=== PATIENT | female | born 1980 | race Caucasian/White ===

== ENCOUNTER → 2018-01-07 | Outpatient (CLI) | payer OTHER | LOC: OD 10:34 | PROVIDERS: ATTEND Obstetrics & Gynecology | DX: O36.80X0 Pregnancy with inconclusive fetal viability, not applicable or unspecified (principal); O20.0 Threatened abortion | CPT/HCPCS: 36415; 84702 ==

== ENCOUNTER → 2018-01-09 | Outpatient (CLI) | payer OTHER | LOC: OD 12:02 | PROVIDERS: ATTEND Obstetrics & Gynecology | DX: O36.80X0 Pregnancy with inconclusive fetal viability, not applicable or unspecified (principal); O20.0 Threatened abortion; Z3A.00 Weeks of gestation of pregnancy not specified | CPT/HCPCS: 36415; 84702 ==

== ENCOUNTER 2020-03-31 11:29 | Emergency (ER) | payer OTHER ==
[2020-03-31 12:51] LABS: ABSOLUTE EOSINOPHILS # (AUTO) 0.1 10^3/uL (0.0-0.6); ABSOLUTE LYMPHOCYTES (AUTO) 1.9 10^3/uL (0.5-4.7); ABSOLUTE MONOCYTES (AUTO) 0.6 10^3/uL (0.1-1.4); ABSOLUTE NEUT (AUTO) 3.6 10^3/uL (1.7-8.2); BASOPHILS % (AUTO) 0.7 % (0-2); EOSINOPHILS % (AUTO) 1.1 % (0-6); HEMATOCRIT 39.5 % (36.0-47.0); HEMOGLOBIN 13.6 g/dL (12.0-15.5); LYMPHOCYTES % (AUTO) 31.1 % (13-45); MEAN CORPUSCULAR HEMOGLOBIN 30.4 pg (27.0-33.4); MEAN CORPUSCULAR HGB CONC 34.4 g/dL (32.0-36.0); MEAN CORPUSCULAR VOLUME 88 fl (80-97); MONOCYTES % (AUTO) 9.2 % (3-13); PLATELET COUNT 250 10^3/uL (150-450); RED BLOOD COUNT 4.47 10^6/uL (3.72-5.28); SEGMENTED NEUTROPHILS % (AUTO) 57.9 % (42-78); TOTAL CELLS COUNTED % (AUTO) 100 %; WHITE BLOOD COUNT 6.3 10^3/uL (4.0-10.5)
--- NOTE | 2020-03-31 13:02 | ER Document Report ---
ED General - General Chief Complaint: OB Problem (<20wks) Stated Complaint: ABDOMINAL PAIN Time Seen by Provider: 03/31/20 12:15 Primary Care Provider: JASSON BARAKAT MD [ACTIVE STAFF] - Follow up in 1 week Notes: 39-year-old female G 11 P4 with 1 tubal ligation and 6 miscarriages presents with pelvic pain. She was having a period on February 14 which was her last. Then had a prior home test positive in early February she then had some cramping and bleeding for a couple of days and was told her beta had dropped. No subsequent subsequent beta it increased again and now she still at home test which she does for monitoring. She just flew back from [place] and will be transitioning care to women's health here in [place]. She has no belly pain currently but does have some low back pain. Leading anymore. Dr. Muhammad is her OB. TRAVEL OUTSIDE OF THE [place] IN LAST 30 DAYS: Yes - Related Data Allergies/Adverse Reactions: amoxicillin [From Augmentin] Allergy (Verified 03/31/20 12:35) clavulanic acid [From Augmentin] Allergy (Verified 03/31/20 12:35) red dye Allergy (Verified 03/31/20 12:35) Past Medical History - General Information source: Patient Last Menstrual Period: 02/05/20 - Social History Smoking Status: Never Smoker Chew tobacco use (# tins/day): No Frequency of alcohol use: Social Drug Abuse: None Family History: None Past Surgical History: Reports: Hx Gynecologic Surgery - csection, tubal ligation, tubal ligation reversal Review of Systems - Review of Systems Notes: REVIEW OF SYSTEMS GEN: Denies fever, chills, weight loss ENT: Denies sore throat, nasal discharge, ear pain EYES: Denies blurry vision, eye pain, discharge CV: Denies chest pain, palpitations, edema RESP: Denies cough, shortness of breath, wheezing GI: Solved abdominal pain and bleeding a MSK: Back pain SKIN: Denies rash, skin lesions LYMPH: Denies swollen glands/lymph nodes NEURO: Denies headache, focal weakness or numbness, dizziness PSYCH: Denies depression, suicidal or homicidal ideation PHYSICAL EXAMINATION General: No acute distress, well-nourished Head: Atraumatic, normocephalic ENT: Mouth normal, oropharynx moist, no exudates or tonsillar enlargement Eyes: Conjunctiva normal, pupils equal, lids normal Neck: No JVD, supple, no guarding CVS: Normal rate, regular rhythm, no murmurs Resp: No resp distress, equal and normal breath sounds bilaterally GI: Nondistended, soft, no tenderness to palpation, no rebound or guarding Ext: No deformities, no edema, normal range of motion in upper and lower ext Back: No CVA or midline TTP Skin: No rash, warm Lymphatic: No lymphadeopathy noted Neuro: Awake, alert. Face symmetric. GCS 15. Physical Exam - Vital signs Vitals: Temp Pulse Resp BP Pulse Ox 97.9 F 77 18 127/73 H 100 03/31/20 11:40 03/31/20 11:40 03/31/20 11:40 03/31/20 11:40 03/31/20 11:40 Course - Re-evaluation Re-evalutation: 03/31/20 13:02 Patient presents with first trimester bleeding which is either unknown location/ectopic/miscarriage or somewhere along that spectrum We will check ultrasound beta-hCG. Known a positive. Will check hemoglobin history of slightly dizzy. No evidence of ongoing rupture. 03/31/20 15:01 Patient's hemoglobin stable. Her beta hCG is 9 her uterus is empty. Discussed at length with Dr. Wilcox from OB. Still unknown location but favors miscarriage. Given ectopic precautions and when to follow-up with them in 1 week. I have discussed with the patient there likely diagnosis, aftercare plan, follow-up plans and my usual and customary return precautions. They verbalized understanding of this. - Vital Signs Vital signs: Temp Pulse Resp BP Pulse Ox 97.8 F 67 14 112/72 100 03/31/20 14:29 03/31/20 14:29 03/31/20 14:29 03/31/20 14:29 03/31/20 14:29 - Laboratory Result Diagrams: 03/31/20 12:38 Laboratory results interpreted by me: 03/31/20 12:38 Beta HCG, Quant 9.17 H Discharge - Discharge Clinical Impression: of unknown anatomic location Condition: Good Disposition: HOME, SELF-CARE Instructions: Ectopic Precaution ([facility]) Referrals: JASSON BARAKAT MD [ACTIVE STAFF] - Follow up in 1 week
[2020-03-31 13:05] LABS: APPEARANCE,URINE CLEAR; BILIRUBIN,URINE NEGATIVE (NEGATIVE); COLOR,URINE YELLOW; GLUCOSE, URINE NEGATIVE (NEGATIVE); KETONES,URINE NEGATIVE (NEGATIVE); LEUKOCYTE ESTERASE,URINE NEGATIVE (NEGATIVE); NITRITE,URINE NEGATIVE (NEGATIVE); PROTEIN,URINE NEGATIVE (NEGATIVE); URINE SPECIFIC GRAVITY 1.012; UROBILINOGEN,URINE NEGATIVE mg/dL (<2.0)
--- NOTE | 2020-03-31 14:01 | RADIOLOGY REPORT (SQ) ---
EXAM DESCRIPTION: U/S OB TRANSVAGINAL W/O DOP IMAGES COMPLETED DATE/TIME: 03/31/2020 1:43 pm REASON FOR STUDY: preg abd pain COMPARISON: None. TECHNIQUE: Transvaginal static and realtime grayscale images acquired of the pelvis. Additional kade cted spectral and color Doppler images recorded. All images stored on PACs. [email or web address] CLINICAL DATES: LMP 02/05/2020 7 weeks 6 days LIMITATIONS: None. FINDINGS: There is no intrauterine gestation at this time. UTERUS: No masses. No anomalies. Endometrium measures 12 mm. CERVICAL LENGTH: 3.7 cm. Closed. RIGHT ADNEXA: Complex cyst measuring 22 x 22 x 20 mm. The ovary measures 33 x 29 x 22 mm. Vascular flow is noted. No adnexal free fluid. No adnexal masses. LEFT ADNEXA: Normal ovary with normal vascular flow measures 2.9 x 2.1 x 2.4 cm. No adnexal free fluid. No adnexal masses. FREE FLUID: None. OTHER: No other significant finding. IMPRESSION: There is no intrauterine gestation at this time. Findings as described. TECHNICAL DOCUMENTATION: JOB ID: [id number] 2010 [employer]- All Rights Reserved rev-02/08 Reading location - IP/workstation name: [email or web address]
[2020-03-31 14:31] VITALS: BP 112/72
== END 2020-03-31 14:39 | disposition home or self-care (01) ==
LOC: ER 11:29
DX: O26.899 Other specified pregnancy related conditions, unspecified trimester (principal)
CPT/HCPCS: 36415; 76817; 81001; 84702; 85025; 86850; 86900; 86901; 99284

== ENCOUNTER → 2020-10-15 | Outpatient (CLI) | payer OTHER ==
[~2020-10-15] MED LIST: COVID-19 VACCINE (PFIZER)/PF 30 MCG/0.3 ML VIAL IM ONE; EPINEPHRINE INJ/PF 1 MG/1 ML AMPULE IM PRN
== END ==
LOC: EMPHEALTH 11:06
PROVIDERS: ATTEND Internal Medicine
DX: Z23 Encounter for immunization (principal)
CPT/HCPCS: 91300